=== PATIENT | male | born 1985 | race Caucasian/White ===

== ENCOUNTER → 2023-05-24 09:46 | Outpatient (BNVA) | payer OTHER, SELFPAY | PROVIDERS: Visit Provider Nurse Practitioner Family | DX: R50.9 Fever, unspecified (principal) | CPT/HCPCS: 87400 ==

== ENCOUNTER 2023-08-18 08:56 | Emergency (ER) | payer OTHER, SELFPAY ==
--- NOTE | 2023-08-18 08:56 | ECG_ITS ---
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 Measurements Intervals [place] Rate: 110 P: 82 PA: 123 QRS: 65 QRSD: 74 T: 66 QT: 322 QTc: 436 Interpretive Statements SINUS TACHYCARDIA NONSPECIFIC T-WAVE ABNORMALITY ABNORMAL RHYTHM ECG No previous ECG available for comparison Electronically Signed On 08-18-2023 13:55:01 CDT by Niels Lynch M.D. [id number]
--- NOTE | 2023-08-18 10:03 | XR_ITS ---
WS: [id number] Exam: XR chest 1V portable [id number] Date/Time of Exam: 08/18/2023 10:10 AM Reason For Exam: cp No priors. Findings: The lungs are clear and fully expanded. Costophrenic angles are sharp. No infiltrates. Bronchovascula r relief appears normal. Cardiac silhouette is unremarkable. Bony elements are intact. XR/XR chest 1V portable [id number] IMPRESSION: Unremarkable chest radiograph.
[2023-08-18 10:12] VITALS: BP 181/101; PULSE 83; RESP 16; TEMP 37; O2SAT 97; BMI 22.9
[2023-08-18 10:47] LABS: Basophils % 0.2 %; Eosinophils # 0.1 10^3/uL (0.0-0.8); Eosinophils % 0.4 %; Hematocrit 52.7 % (37-53); Lymphocytes # 2.6 10^3/uL (0.8-4.8); Lymphocytes % 21.3 %; Mean Corpuscular HGB Conc 33.2 g/dL (30-55); Mean Corpuscular Hemoglobin 31.5 pg (27-33); Mean Corpuscular Volume 94.8 fl (82-101); Mean Platelet Volume 10.1 fL (7.4-10.4); Monocytes # 0.4 10^3/uL (0.2-0.9); Monocytes % 3.6 %; Neutrophils # 8.99 10^3/uL (1.8-7.7); Neutrophils % 74.3 %; Nucleated Red Blood Cells % 0 %; Platelet Count 235 10^3/cmm (157-399); Red Blood Count 5.56 10^6/uL (3.85-5.65); Red Cell Distribution Width 13.2 % (12.1-15.1); White Blood Count 12.12 10^3/uL (3.29-11.43)
[2023-08-18 11:08] LABS: Alanine Aminotransferase 23 U/L (0-41); Albumin Level 4.6 g/dL (3.5-5.2); Alkaline Phosphatase 96 U/L (40-130); Anion Gap 13.1 (5-19); Aspartate Amino Transferase 19 U/L (0-40); Blood Urea Nitrogen 12 mg/dL (6-20); Calcium 9.9 mg/dL (8.5-10.5); Carbon Dioxide 27 mmol/L (22-29); Chloride 102 mmol/L (98-107); Creatinine Clr Calc Pharmacy 92.8766; Globulin 3.5 g/dL (1.3-4.6); Glomerular Filtration Rate 74.5 mL/min (90-130); Glucose 95 mg/dL (65-115); Lipase 39 U/L (13-60); Osmolality Calculated 284 mOsm/kg (285-295); Potassium 5.1 mmol/L (3.5-5.1); Sodium 137 mmol/L (136-145); Total Bilirubin 0.5 mg/dL (0.15-1.2); Total Protein 8.1 g/dL (6.6-8.7)
[2023-08-18 11:09] LABS: Troponin(5th) Baseline < 6 ng/L (0-15)
[2023-08-18 11:19] VITALS: BP 132/86; PULSE 67; RESP 17; O2SAT 100
--- NOTE | 2023-08-18 11:22 | ED_ITS ---
HPI - Chest Pain 2 General: Chief Complaint: Chest Pain Stated Complaint: chest pain Time Seen by Provider: 08/18/23 11:13 Source: patient Mode of arrival: ambulatory Limitations: no limitations History of Present Illness: 38-year-old male who states that he has been having chest pain been off and on for the last week states it seems to be worse with movement or deep inspiration he states he is also had some generalized weakness he denies any vomiting or diarrhea. He denies any cough. No history of heart disease. Associated symptoms: Deny abdominal pain, dyspnea, fever(s), nausea or vomiting Review of Systems 2 Const: Denies: fever(s), chills, body aches or change in appetite ENMT: Denies: throat pain or dental pain Card: Reports: chest pain Resp: Denies: dyspnea GI: Denies: abdominal pain, nausea, vomiting or diarrhea Musc: Denies: neck pain or back pain Skin/Breast: Denies: rash Neuro: Denies: headache(s) Physical Exam 2 Const: COMMON NORMALS: no acute distress, patient oriented x3 and healthy appearing HENMT: COMMON NORMALS: normocephalic and atraumatic HEAD & SCALP: n ormocephalic and atraumatic Eye: COMMON NORMALS: Equal, round and reactive pupils present and EOMs intact bilaterally PUPIL: Yes Equal, round and reactive pupils present Neck/C-Spine: COMMON NORMALS: full ROM and supple Chest: COMMONS NORMALS: normal inspection of the chest and normal palpation of entire chest wall Resp: COMMON NORMALS: normal respiratory effort, No retractions, No use of accessory muscles and clear to auscultation bilaterally AUSCULTATION: clear to auscultation bilaterally Cardio: COMMON NORMALS: regular rate, regular rhythm and No murmurs present (Cardio) RATE: regular rate RHYTHM: regular rhythm GI: COMMON NORMALS: Normal to inspection, nondistended, normoactive bowel sounds present, Soft to palpation, non-tender and no masses PALPATION: Yes Soft to palpation Extremity: COMMON NORMALS: normal to inspection and full ROM Neuro: COMMON NORMALS: patient oriented x3, moves all extremities and no focal motor deficits Psych: COMMON NORMALS: mental status grossly normal, Normal thought process present and cooperative THOUGHT PROCESS: Normal thought process present Skin: COMMON NORMALS: no rashes or lesions noted and no wounds GENERAL SKIN EXAM: no rashes or lesions noted Course 2 Vital Signs: Vital signs: Vital Signs Temperature 98.6 F 08/18/23 10:12 Pulse Rate 78 08/18/23 12:30 Respiratory Rate 18 08/18/23 12:30 Blood Pressure 124/85 08/18/23 12:30 Pulse Oximetry 98 08/18/23 12:30 Oxygen Delivery Me thod Room Air 08/18/23 12:30 MDM - Chest Pain Medical Decision Making Patient presents here with chest pain is atypical in nature troponins here are negative patient stable for discharge follow-up PCP return if worsening. Medical Records I reviewed the patient's medical records. Lab Data I reviewed the patient's lab results. 08/18/23 10:39 08/18/23 10:39 Radiology Impressions Chest X-Ray 08/18/23 10:03 IMPRESSION: Unremarkable chest radiograph. Laboratory Results WBC 12.12 10^3/uL (3.29-11.43) H 08/18/23 10:39 RBC 5.56 10^6/uL (3.85-5.65) 08/18/23 10:39 Hgb 17.50 g/dL (11.27-16.99) H 08/18/23 10:39 Hct 52.7 % (37-53) 08/18/23 10:39 MCV 94.8 fl (82-101) 08/18/23 10:39 MCH 31.5 pg (27-33) 08/18/23 10:39 MCHC 33.2 g/dL (30-55) 08/18/23 10:39 RDW 13.2 % (12.1-15.1) 08/18/23 10:39 Plt Count 235 10^3/cmm (157-399) 08/18/23 10:39 MPV 10.1 fL (7.4-10.4) 08/18/23 10:39 Neut % (Auto) 74.3 % 08/18/23 10:39 Lymph % (Auto) 21.3 % 08/18/23 10:39 [place] % (Auto) 3.6 % 08/18/23 10:39 Eos % (Auto) 0.4 % 08/18/23 10:39 Baso % (Auto) 0.2 % 08/18/23 10:39 Neut # (Auto) 8.99 10^3/uL (1.8-7.7) H 08/18/23 10:39 Lymph # (Auto) 2.6 10^3/uL (0.8-4.8) 08/18/23 10:39 [place] # (Auto) 0.4 10^3/uL (0.2-0.9) 08/18/23 10:39 Eos # (Auto) 0.1 10^3/uL (0.0-0.8) 08/18/23 10:39 Baso # (Auto) 0.0 10^3/uL (0.0-0.1) 08/18/23 10:39 Nucleated RBC % (auto) 0 % 08/18/23 10:39 Nucleated RBCs # 0.0 /100WBC 08/18/23 10:39 Sodium 137 mmol/L (136-145) 08/18/23 10:39 Potassium 5.1 mmol/L (3.5-5.1) 08/18/23 10:39 Chloride 102 mmol/L (98-107) 08/18/23 10:39 Carbon Dioxide 27 mmol/L (22-29) 08/18/23 10:39 Anion Gap 13.1 (5-19) 08/18/23 10:39 BUN 12 mg/dL (6-20) 08/18/23 10:39 Creatinine 1.1 mg/dL (0.7-1.2) 08/18/23 10:39 GFR Calculation 74.5 mL/min (90-130) L 08/18/23 10:39 Glucose 95 mg/dL (65-115) 08/18/23 10:39 Calculated Osmolality 284 mOsm/kg (285-295) L 08/18/23 10:39 Calcium 9.9 mg/dL (8.5-10.5) 08/18/23 10:39 Total Bilirubin 0.5 mg/dL (0.15-1.2) 08/18/23 10:39 AST 19 U/L (0-40) 08/18/23 10:39 ALT 23 U/L (0-41) 08/18/23 10:39 Alkaline Phosphatase 96 U/L (40-130) 08/18/23 10:39 Troponin T Baseline < 6 ng/L (0-15) 08/18/23 10:39 Troponin T 120 Minute 6.00 ng/L (0-15) 08/18/23 12:28 Delta Troponin T 0.94637 ABS# (0-10) 08/18/23 12:28 Total Protein 8.1 g/dL (6.6-8.7) 08/18/23 10:39 Albumin 4.6 g/dL (3.5-5.2) 08/18/23 10:39 Globulin 3.5 g/dL (1.3-4.6) 08/18/23 10:39 Lipase 39 U/L (13-60) 08/18/23 10:39 TSH 1.19 uIU/mL (0.27-4.20) 08/18/23 10:39 All radiology interpretation(s) finalized by discharge Discharge Plan Discharge Patient Disposition: Home Clinical Impression: Chest pain Condition: Stable Prescriptions: No Action No Known Home Medications Discharge Orders: Discharge ED (Routine); Ordered 08/18/23 Ordered By: Manuelito Grijalva Discharge Diet: Advance as tolerated Discharge Activity: Resume usual activity Patient Instructions: Chest Pain (ED) Coding Level of Care Code ED Adjusto Writer Operator for Ronaldo Reich
[2023-08-18 11:30] VITALS: BP 133/85; PULSE 62; RESP 23; O2SAT 96
[2023-08-18 11:47] LABS: Thyroid Stimulating Hormone 1.19 uIU/mL (0.27-4.20)
--- NOTE | 2023-08-18 12:03 | ECG_ITS ---
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 Measurements Intervals [place] Rate: 62 P: 72 IN: 141 QRS: 62 QRSD: 69 T: 50 QT: 378 QTc: 387 Interpretive Statements SINUS RHYTHM Compared to ECG 08/18/2023 08:56:07 Sinus tachycardia no longer present T-wave abnormality no longer present Electronically Signed On 08-18-2023 13:56:17 CDT by Niels Lynch M.D. [id number]
[2023-08-18 12:21] VITALS: BP 120/82; PULSE 72; RESP 18; O2SAT 96
[2023-08-18 12:30] VITALS: BP 124/85; PULSE 78; RESP 18; O2SAT 98
[2023-08-18 13:03] LABS: Troponin 5 2HR Delta 0.00001 ABS# (0-10)
--- NOTE | 2023-08-18 13:51 | PC.NURSE ---
PRINTER HAS BEEN DOWN FOR 30 MINUTES, [facility] AWARE AND WORKING ON IT.
[2023-08-18 13:52] VITALS: BP 122/89; PULSE 55; RESP 20; O2SAT 98
== END 2023-08-18 14:31 | disposition home or self-care (01) ==
PROVIDERS: Emergency Provider Emergency Medicine
DX: R07.9 Chest pain, unspecified (principal)
CPT/HCPCS: 36415; 71045; 80053; 83690; 84443; 84484; 85025; 93005; 99285